=== PATIENT | female | born 1950 | race Caucasian/White ===

== ENCOUNTER 2017-10-07 11:36 | Inpatient (IN) | payer OTHER, MEDICARE ==
[~2017-10-07] VITALS: Ht 175.3 cm; Wt 67.1 kg
--- NOTE | 2017-10-07 11:48 | NUR ---
Dr Nick at the bedside for eval and exam.
--- NOTE | 2017-10-07 11:56 | NUR ---
Pt is awake A/O x4. cooperative and pleasent at this time.
[2017-10-07] MEDS ORDERED: FLUO20CA36 PO (12:01)
[2017-10-07] MEDS ORDERED: ALPR1TAB2 PO (12:01)
--- NOTE | 2017-10-07 12:33 | NUR ---
PT IS MEDICALLY CLEARED BY DR CARRILLO TO BE ADMITTED TO [facility].
[2017-10-07] MEDS ORDERED: DENO60DI SQ (12:45)
[2017-10-07] MEDS ORDERED: FLUO15OI TP (12:45)
[2017-10-07] MEDS ORDERED: CLOB15CR4 TP (12:45)
[2017-10-07] MEDS ORDERED: ALPRAZOLAM 0.25 MG TABLET PO ONE (12:45)
[2017-10-07] MEDS ORDERED: CALC-343 PO (12:45)
[2017-10-07] MEDS ORDERED: CHOL100043 PO (12:45)
[2017-10-07] MEDS ORDERED: ZOLP5TAB8 PO (12:45)
[2017-10-07] MEDS ORDERED: ALPRAZOLAM 0.5 MG TABLET ONE (12:59)
[2017-10-07 13:20] VITALS: BP 146/96
[2017-10-07] MEDS ORDERED: MAGNESIUM HYDROXIDE 30 ML LIQUID UDC PO PRN (13:30)
[2017-10-07] MEDS ORDERED: MAG HYDROX/AL HYDROX/SIMETH 30 ML LIQUID UDC PO PRN (13:30)
[2017-10-07 16:00] VITALS: BP 139/79
[2017-10-07] MEDS: CLONAZEPAM 0.5 MG TABLET PO PRN (16:13)
[2017-10-07 20:45] VITALS: BP 133/75
[2017-10-07] MEDS: TEMAZEPAM 7.5 MG CAPSULE PO PRN (21:04)
--- NOTE | 2017-10-07 21:15 | NUR ---
PATIENT RECEIVED IN BED AWAKE READING A BOOK. PATIENT CALM, AND COOPERATIVE UPON APPROACH. PATIENT IS EASILY AGITATED FLAT AFFECT, HOWEVER IS REDIRECTALBE. PATIENT IN NO APPARENT DISTRESS, WILL CONTINUE TO MONITOR. PATIENT DENIES PAIN AT THIS TIME, WILL CONTINUE TO MONITOR. NO AGGRESSIVE OR COMBATIVE BEHAVIOR NOTED WILL CONTINUE TO MONITOR. PATIENT DENIES SI/AH/VH WILL CONTINUE TO MONITOR. BED IN LOWEST POSITION, BED LOCKED.
[2017-10-08] MEDS: CLONAZEPAM 0.5 MG TABLET PO PRN ×4 (02:18→19:47)
[2017-10-08 07:30] VITALS: BP 139/89
--- NOTE | 2017-10-08 10:06 | NUR ---
Pharmaceutical Plant Operator: MELANIE completed and submitted [employer] Report on 10/08/17.
[2017-10-08] MEDS ORDERED: CLONIDINE HCL 0.1 MG TABLET PO PRN (14:45)
[2017-10-08 15:54] LABS: *BILIRUBIN,URIN NEGATIVE (NEGATIVE); *BLOOD, URINE 2+ (NEGATIVE); *CLARITY,URINE CLEAR (CLEAR); *COLOR,URINE YELLOW (YELLOW); *KETONES,URINE NEGATIVE (NEGATIVE); *PROTEIN,URINE NEGATIVE (NEGATIVE); LEUKOCYTE ESTERASE ,URINE NEGATIVE (NEGATIVE); NITRITE, URINE NEGATIVE (NEGATIVE); UGLUCOSE NEGATIVE (NEGATIVE)
[2017-10-08 16:00] LABS: *AMPHETAMINE, URINE NEGATIVE (NEGATIVE); *BARBITURATE, URINE NEGATIVE (NEGATIVE); *CANNABINOID, URINE NEGATIVE (NEGATIVE); *COCCAINE, URINE NEGATIVE (NEGATIVE); *OPIATE, URINE NEGATIVE (NEGATIVE); *PHENCYCLIDINE SCREEN,URINE NEGATIVE (NEGATIVE)
[2017-10-08 16:10] LABS: BACTERIA,URINE NONE SEEN /HPF (NONE SEEN); SQUAMOUS EPITHELIAL CELL,UR FEW /HPF (NONE SEEN); WBC,URINE 0-3 /HPF (0-3)
[2017-10-08] MEDS: DIVALPROEX 250 MG TABLET.DR PO SCH (16:39)
[2017-10-08 17:10] VITALS: BP 152/95
[2017-10-08 20:00] VITALS: BP 150/86
--- NOTE | 2017-10-08 22:00 | NUR ---
received to care, sitting on her bed, reading a book, pleasant, but isolative in her room. MIRACLE tobar was given at 1947 for anxiety, and, by 2099, reported good relief. currently sitting in her room, interacting with her roommate. no distress noted. will continue to monitor closely.
[2017-10-08] MEDS: TEMAZEPAM 7.5 MG CAPSULE PO PRN (22:08)
--- NOTE | 2017-10-08 22:08 | NUR ---
PRN restoril, given for insomnia
--- NOTE | 2017-10-08 23:00 | NUR ---
appears to be asleep. no distress noted.
[2017-10-09] MEDS: ACETAMINOPHEN 325 MG TABLET PO PRN ×2 (00:45→06:49)
[2017-10-09] MEDS: CLONAZEPAM 0.5 MG TABLET PO PRN (04:32)
--- NOTE | 2017-10-09 04:32 | NUR ---
PRN klonopin, given at this time, for anxiety.
--- NOTE | 2017-10-09 06:30 | NUR ---
slept 6.0 hours total.
[2017-10-09 07:39] VITALS: BP 153/99
[2017-10-09] MEDS: DIVALPROEX 250 MG TABLET.DR PO SCH ×3 (08:13→16:32)
[2017-10-09 08:32] LABS: BILIRUBIN,TOTAL 0.6 mg/dL (0.2-1.0); CREATININE 0.7 mg/dL (0.6-1.3); MAGNESIUM 2.1 mg/dL (1.8-2.4); PHOSPHOROUS 3.2 mg/dL (2.5-4.9); POTASSIUM 3.5 mmol/L (3.5-5.1); TOTAL PROTEIN, SERUM 7.3 g/dL (6.4-8.2)
[2017-10-09 08:38] LABS: EOSINOPHILS # (AUTO) 0.2 K/uL (0.0-0.7); EOSINOPHILS % (AUTO) 4.8 % (0.0-7.0); HEMOGLOBIN 12.6 g/dL (10.9-14.3); LYMPHOCYTES # (AUTO) 1.1 K/uL (20.0-40.0); MEAN CORPUSCULAR HEMOGLOBIN 32.3 uug (24.7-32.8); MEAN CORPUSCULAR HGB CONC 35 g/dL (32.3-35.6); MEAN CORPUSCULAR VOLUME 92.3 fL (75.5-95.3); MONOCYTES # (AUTO) 0.4 K/uL (2.0-10.0); MONOCYTES % (AUTO) 9.4 % (0.0-11.0); NEUTROPHILS # (AUTO) 2.5 K/uL (1.8-8.9); NEUTROPHILS % (AUTO) 58.8 % (38.5-71.5); PLATELET COUNT (AUTO) 254 K/uL (179-408); WHITE BLOOD COUNT (AUTO) 4.3 K/uL (3.8-11.8)
[2017-10-09 08:46] LABS: THYROID STIMULATING HORMONE 2.29 mIU/mL (0.358-3.740)
--- NOTE | 2017-10-09 08:53 | NUR ---
Initial Discharge Instructions: Pt resides at home with her 90-year-old mother and 2 sons [[place] [address]; [phone]]. Per pt she would like to return there upon discharge. SW will follow-up with her son, Collin [phone]. MELANIE will speak with pt, family, and MD regarding appropriate discharge plan. SW will form a safe and proper discharge.
[2017-10-09] MEDS ORDERED: FLUOXETINE HCL 20 MG CAPSULE PO SCH (09:00)
--- NOTE | 2017-10-09 09:05 | NUR ---
UR Note: SW provided clinicals for pt to JERE Jett at [facility] ([phone]). Awaiting authorization.
[2017-10-09] MEDS ORDERED: hydrALAZINE HCL 25 MG TABLET PO PRN (14:30)
[2017-10-09 16:09] VITALS: BP 149/87
[2017-10-09 20:11] VITALS: BP 131/90
[2017-10-09] MEDS ORDERED: FLUOCINONIDE 0.05% OINT 15 GM TUBE TP SCH (21:00)
[2017-10-09] MEDS: TEMAZEPAM 7.5 MG CAPSULE PO PRN (22:08)
[2017-10-10] MEDS: ACETAMINOPHEN 325 MG TABLET PO PRN ×2 (01:27→08:44)
[2017-10-10 07:30] VITALS: BP 134/81
[2017-10-10] MEDS: DIVALPROEX 250 MG TABLET.DR PO SCH ×3 (08:39→16:25)
[2017-10-10] MEDS ORDERED: CALCIUM CARBONATE 500 MG TABLET PO SCH (09:00)
[2017-10-10] MEDS ORDERED: CLOBETASOL PROPIONATE 0.05% CREAM 15 GM TUBE TP SCH (09:00)
[2017-10-10] MEDS ORDERED: CHOLECALCIFEROL 1,000 UNIT TABLET PO SCH (09:00)
[2017-10-10] MEDS ORDERED: CALCIUM CARBONATE 1000 MG PO SCH (09:00)
--- NOTE | 2017-10-10 10:59 | NUR ---
UR Note: MELANIE spoke with [employer] [place] Supervisor [employer] Department, Maliha ([phone]). Pt is authorized from 10/08-10/14 with review on 10/15 AUTH#[id number]. SW will follow-up.
--- NOTE | 2017-10-10 14:16 | NUR ---
DC Note: Patient will be discharged home with her son [[address] [place] [address]; [phone]] via private transportation at 4pm. Spoke with pt's son, Collin ([phone]) who is willing to provide transportation and is agreeable with plan. Patient will follow-up with her outpatient Primary Care Physician Dr. Blair [[address], [place] [address]; ] and her outpatient Psychiatrist Dr. Weston Babcock [[address], [place] [address]; ]. Addendum: 10/10/17 at 1446 by SOPHIA NAVARRO Patient was provided with a brief substance abuse intervention and referred to [facility] , and [facility] .
[2017-10-10] MEDS ORDERED: PNEUMOCOCCAL 23-VAL P-SAC VAC 0.5 ML VIAL IM ONE (15:30)
--- NOTE | 2017-10-10 16:15 | NUR ---
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 All belongings given back to patient including the one from the safe.Anxious to go home, denies any discomfort at this time, patient appeared to be in good spirit, no complaints offered.
[2017-10-10 16:21] VITALS: BP 150/79
== END 2017-10-10 17:00 | disposition home or self-care (01) | DRG 885 ==
LOC: ER 11:36 → GPS 12:50
PROVIDERS: ADMIT Internal Medicine; ATTEND Psychiatry & Neurology Psychiatry
DX: F31.9 Bipolar disorder, unspecified (principal); E87.1 Hypo-osmolality and hyponatremia; F10.10 Alcohol abuse, uncomplicated; F41.9 Anxiety disorder, unspecified; I10 Essential (primary) hypertension; Z79.899 Other long term (current) drug therapy; Z85.828 Personal history of other malignant neoplasm of skin; F32.9 Major depressive disorder, single episode, unspecified; Z91.81 History of falling; F29 Unspecified psychosis not due to a substance or known physiological condition
CPT/HCPCS: 36415; 71010; 80307; 83735; 84100; 84443; 85025; 87086; 90732; 93005; A4663; J3490